=== PATIENT | female | born 1950 | race Hispanic/Latino ===

== ENCOUNTER 2021-11-09 17:48 | Inpatient (IN) | payer OTHER, MEDICARE ==
[~2021-11-09] VITALS: Ht 167.6 cm; Wt 114.3 kg
[~2021-11-09 17:48] MED LIST: ALBU8.5H8 IH; BENZ-39 PO; ENAL10TA18 PO; LEVO500T2 PO; OMEP20TA20 PO; PIOG30TA70 PO
[2021-11-09] MEDS ORDERED: LACTATED RINGERS 1000ML 1,000 ML IV ONE (18:30)
[2021-11-09 18:52] LABS: BASOPHILS % (AUTO) 0.6 % (0.0-5.0); EOSINOPHILS % (AUTO) 2.9 % (0.0-8.0); HEMATOCRIT 40.6 % (36-48); LYMPHOCYTES % (AUTO) 19.3 % (21.0-51.0); MEAN CORPUSCULAR HEMOGLOBIN 28.2 pg (27.0-33.0); MEAN CORPUSCULAR HGB CONC 32.8 g/dL (32.0-36.0); MEAN CORPUSCULAR VOLUME 86.2 fL (79-99); MONOCYTES % (AUTO) 7.7 % (3.0-13.0); NEUTROPHILS % (AUTO) 69.1 % (40.0-77.0); PLATELET COUNT (AUTO) 298 K/uL (130-400); RED BLOOD CELL COUNT(AUTO) 4.71 MIL/uL (4.00-5.50); RED CELL DISTRIBUTION WIDTH 14.1 % (11.0-15.5); WHITE BLOOD COUNT (AUTO) 9.9 K/uL (4.8-10.8)
[2021-11-09 19:06] LABS: CREATININE 1.7 mg/dL (0.5-1.5)
[2021-11-09 19:12] LABS: ALBUMIN 3.4 g/dL (3.5-5.0); TOTAL PROTEIN, SERUM 8.2 g/dL (6.0-8.3)
[2021-11-09] MEDS ORDERED: KETOROLAC 15MG/ML VIAL (15MG/ML) IV ONE (20:00)
[2021-11-09] MEDS ORDERED: 0.9%NACL 1000ML 1,000 ML IV ONE (20:00)
[2021-11-09] MEDS: METRONIDAZOLE 500MG/100ML BAG 100 ML IVPB SCH ×2 (20:10→21:48)
[2021-11-09 20:25] LABS: INR 0.94 (0.85-1.15); PROTHROMBIN TIME 10.3 SEC (9.6-11.6)
[2021-11-09] MEDS ORDERED: MORPHINE 2 MG SYG IV PRN (20:30)
[2021-11-09] MEDS ORDERED: ACETAMINOPHEN 325 MG TAB PO PRN ×2 (20:30)
[2021-11-09] MEDS: 0.9%NACL 1000ML 1,000 ML IV SCH (20:53)
[2021-11-09] MEDS: LEVOFLOXACIN 750 MG/D5W 150 ML 150 ML IV SCH (21:05)
[2021-11-10] MEDS ORDERED: KETOROLAC 30MG VIAL (30MG/ML) IVP PRN (01:00)
[2021-11-10] MEDS ORDERED: NIFE30TA98 PO (04:31)
[2021-11-10] MEDS ORDERED: GLUCOVANCE PO (04:31)
[2021-11-10 06:02] LABS: BASOPHILS % (AUTO) 0.5 % (0.0-5.0); EOSINOPHILS % (AUTO) 2.6 % (0.0-8.0); HEMATOCRIT 35.4 % (36-48); LYMPHOCYTES % (AUTO) 16.3 % (21.0-51.0); MEAN CORPUSCULAR HEMOGLOBIN 28.4 pg (27.0-33.0); MEAN CORPUSCULAR HGB CONC 33.1 g/dL (32.0-36.0); MEAN CORPUSCULAR VOLUME 85.9 fL (79-99); MONOCYTES % (AUTO) 9.3 % (3.0-13.0); NEUTROPHILS % (AUTO) 70.8 % (40.0-77.0); PLATELET COUNT (AUTO) 263 K/uL (130-400); RED BLOOD CELL COUNT(AUTO) 4.12 MIL/uL (4.00-5.50); WHITE BLOOD COUNT (AUTO) 7.8 K/uL (4.8-10.8)
[2021-11-10] MEDS: METRONIDAZOLE 500MG/100ML BAG 100 ML IVPB SCH ×2 (06:15→14:36)
[2021-11-10 06:19] LABS: ALBUMIN 2.7 g/dL (3.5-5.0); CREATININE 1.1 mg/dL (0.5-1.5); POTASSIUM 4.4 mmol/L (3.5-5.1); TOTAL PROTEIN, SERUM 6.9 g/dL (6.0-8.3)
[2021-11-10] MEDS: 0.9%NACL 1000ML 1,000 ML IV SCH ×2 (06:58→17:14)
[2021-11-10 07:07] LABS: ERYTHROCYTE SEDIMENTATION RATE 55 MM/HR (0-30)
[2021-11-10] MEDS: FAMOTIDINE 20MG VIAL IV SCH (08:07)
[2021-11-10] MEDS: NIFEDIPINE ER 30 MG TAB PO SCH ×2 (08:07→21:04)
[2021-11-10 09:28] LABS: APPEARANCE,URINE SL CLOUDY (CLEAR); BILIRUBIN,URINE NEGATIVE (NEGATIVE); COLOR,URINE YELLOW (YELLOW); GLUCOSE, URINE (UA) NEGATIVE (NEGATIVE); KETONES,URINE 5 mg/dL (NEGATIVE); LEUKOCYTE ESTERASE ,URINE SMALL (NEGATIVE); NITRATE,URINE NEGATIVE (NEGATIVE); OCCULT BLOOD,URINE NEGATIVE (NEGATIVE); PROTEIN,URINE TRACE mg/dL (NEGATIVE); UROBILINOGEN,URINE 0.2 mg/dL (0.2-1.0)
[2021-11-10 09:59] LABS: BACTERIA,URINE Few /HPF (None Seen); RBC,URINE None Seen /HPF (0-1); SQUAMOUS EPITHELIAL CELL,UR 0-2 /HPF (0-2)
[2021-11-10] MEDS ORDERED: LORAZEPAM 2 MG/ML 1 ML VIAL IM SCH (11:00)
[2021-11-10] MEDS ORDERED: LORAZEPAM 2 MG TABLET PO ONE (12:00)
[2021-11-10] MEDS: INSULIN HUMULIN R 100 UNIT/ML 3ML SQ SCH ×2 (12:00→17:24)
[2021-11-10] MEDS ORDERED: LORAZEPAM 1 MG TABLET ONE (12:04)
[2021-11-10] MEDS: ONDANSETRON 4MG INJ IV PRN (14:36)
[2021-11-10] MEDS ORDERED: IOHEXOL 350 MG/ML 100ML INFUS..BTL IV ONE (19:56)
[2021-11-10] MEDS: LEVOFLOXACIN 750 MG/D5W 150 ML 150 ML IV SCH (21:04)
[2021-11-10] MEDS ORDERED: METOPROLOL TARTRATE 1 MG/ML 5ML VIAL IV PRN (22:30)
[2021-11-10 23:00] VITALS: BP 155/62
[2021-11-11] VITALS (25 sets, daily range): BP systolic 118–164; BP diastolic 41–86
[2021-11-11] MEDS: METRONIDAZOLE 500MG/100ML BAG 100 ML IVPB SCH ×3 (00:30→15:45)
[2021-11-11] MEDS ORDERED: LANSOPRAZOLE BC (02:21)
[2021-11-11] MEDS: 0.9%NACL 1000ML 1,000 ML IV SCH ×2 (03:07→15:49)
[2021-11-11] MEDS: INSULIN HUMULIN R 100 UNIT/ML 3ML SQ SCH ×4 (06:00→18:00)
[2021-11-11 06:23] LABS: MEAN CORPUSCULAR HEMOGLOBIN 28.3 pg (27.0-33.0); MEAN CORPUSCULAR VOLUME 85.7 fL (79-99); RED BLOOD CELL COUNT(AUTO) 4.67 MIL/uL (4.00-5.50); RED CELL DISTRIBUTION WIDTH 14.2 % (11.0-15.5); WHITE BLOOD COUNT (AUTO) 10.9 K/uL (4.8-10.8)
[2021-11-11 06:31] LABS: CREATININE 0.9 mg/dL (0.5-1.5)
[2021-11-11] MEDS: ONDANSETRON 4MG INJ IV PRN ×2 (06:51→14:58)
[2021-11-11] MEDS: FAMOTIDINE 20MG VIAL IV SCH (09:00)
[2021-11-11] MEDS: NIFEDIPINE ER 30 MG TAB PO SCH ×2 (09:00→21:27)
[2021-11-11] MEDS ORDERED: BUPIVACAINE/PF 0.25% 30ML VIAL IJ ONE (11:14)
[2021-11-11] MEDS ORDERED: LIDOCAINE HCL 1% 20 ML VIAL ONE (11:14)
[2021-11-11] MEDS ORDERED: FENTANYL CITRATE PF 50 MCG/1 ML 2ML VIAL ONE (11:37)
[2021-11-11] MEDS ORDERED: PROPOFOL 10 MG/ML 20ML VIAL IV ONE (11:37)
[2021-11-11] MEDS ORDERED: LIDOCAINE PF 100MG/5ML (2%) SYRINGE 5ML ONE ×2 (11:37)
[2021-11-11] MEDS ORDERED: ROCURONIUM 10MG/1ML SYR 10 MG/ML ML ONE (11:37)
[2021-11-11] MEDS ORDERED: CEFOXITIN SODIUM 2 GM VIAL ONE (13:23)
[2021-11-11] MEDS ORDERED: ONDANSETRON 4MG INJ ONE (13:49)
[2021-11-11] MEDS ORDERED: GLYCOPYRROLATE 1 MG/5 ML SYRINGE ONE (13:54)
[2021-11-11] MEDS ORDERED: NEOSTIGMINE 5MG/5ML SYR IV ONE (13:55)
[2021-11-11] MEDS ORDERED: MEPERIDINE-PF 25 MG/ML SYG ONE (14:38)
[2021-11-11] MEDS ORDERED: KETOROLAC 15MG/ML VIAL (15MG/ML) ONE (15:10)
[2021-11-11] MEDS ORDERED: METOPROLOL TARTRATE 1 MG/ML 5ML VIAL IV PRN (16:30)
[2021-11-11] MEDS ORDERED: OXYCODONE/ACETAMIN 5/325MG TAB PO PRN (17:30)
[2021-11-11] MEDS: LEVOFLOXACIN 750 MG/D5W 150 ML 150 ML IV SCH (21:29)
[2021-11-12] MEDS: METRONIDAZOLE 500MG/100ML BAG 100 ML IVPB SCH ×3 (00:46→17:43)
[2021-11-12 03:44] VITALS: BP 132/77
[2021-11-12] MEDS: INSULIN HUMULIN R 100 UNIT/ML 3ML SQ SCH ×3 (06:00→23:02)
[2021-11-12] MEDS: 0.9%NACL 1000ML 1,000 ML IV SCH ×2 (06:46→14:13)
[2021-11-12 07:48] VITALS: BP 102/53
[2021-11-12] MEDS: NIFEDIPINE ER 30 MG TAB PO SCH ×2 (09:09→21:29)
[2021-11-12] MEDS: FAMOTIDINE 20MG VIAL IV SCH (09:09)
[2021-11-12] MEDS: BISACODYL 10 MG SUPP.RECT RC SCH (09:16)
[2021-11-12 11:45] VITALS: BP 136/65
[2021-11-12] MEDS ORDERED: ACETAMINOPHEN 325 MG TAB PO PRN (14:30)
[2021-11-12 15:30] VITALS: BP 104/50
[2021-11-12 19:19] VITALS: BP 132/62
[2021-11-12 23:02] VITALS: BP 124/53
[2021-11-12] MEDS: LEVOFLOXACIN 750 MG TABLET PO SCH (23:05)
[2021-11-13] MEDS: METRONIDAZOLE 500 MG TABLET PO SCH ×2 (01:47→09:21)
[2021-11-13 03:38] VITALS: BP 128/56
[2021-11-13] MEDS: 0.9%NACL 1000ML 1,000 ML IV SCH (04:30)
[2021-11-13] MEDS: INSULIN HUMULIN R 100 UNIT/ML 3ML SQ SCH (06:00)
[2021-11-13 06:36] VITALS: BP 99/61
[2021-11-13] MEDS: BISACODYL 10 MG SUPP.RECT RC SCH (08:30)
[2021-11-13] MEDS: FAMOTIDINE 20MG VIAL IV SCH (09:21)
[2021-11-13] MEDS: NIFEDIPINE ER 30 MG TAB PO SCH (09:21)
[2021-11-13] MEDS: LEVOFLOXACIN 750 MG TABLET PO SCH (09:21)
[2021-11-13] MEDS ORDERED: FAMOTIDINE 20MG TAB PO SCH (10:00)
== END 2021-11-13 10:35 | disposition left against medical advice (07) | DRG 418 ==
LOC: EDH 17:48 → EDHIP 20:03 → OBSVTOIN 20:03 → INTOOBSV 20:03 → WSH 11-10 23:23
PROVIDERS: ADMIT Hospitalist; ATTEND Hospitalist
PROC: 8E0W4CZ Robotic Assisted Procedure of Trunk Region, Percutaneous Endoscopic Approach (ICD-10-PCS; 2021-11-11)
PROC: 0FT44ZZ Resection of Gallbladder, Percutaneous Endoscopic Approach (ICD-10-PCS; principal; 2021-11-11 11:28)
DX: K80.20 Calculus of gallbladder without cholecystitis without obstruction (principal); Z68.41 Body mass index [BMI] 40.0-44.9, adult; E66.01 Morbid (severe) obesity due to excess calories; Z20.822 Contact with and (suspected) exposure to COVID-19; E11.9 Type 2 diabetes mellitus without complications; I10 Essential (primary) hypertension; Z88.0 Allergy status to penicillin
CPT/HCPCS: 36415; 74176; 74178; 74181; 76705; 78226; 80048; 80053; 81001; 82948; 83690; 84484; 85025; 85027; 85610; 85651; 85730; 87088; 87635; 93005; A4351; A9537; G0378; J0694; J1885; J1956; J2001; J2175; J2405; J2704; J2710; J3010; J3490; J7030; Q9967